=== PATIENT | female | born 1985 | race Hispanic/Latino ===

== ENCOUNTER 2021-11-06 04:57 | Emergency (ER) | payer OTHER ==
[~2021-11-06] VITALS: Ht 157.5 cm; Wt 86.2 kg
[2021-11-06] MEDS ORDERED: FLUCONAZOLE100 MG PO (05:40)
== END 2021-11-06 05:45 | disposition home or self-care (01) ==
LOC: FSED 05:40
DX: B37.9 Candidiasis, unspecified (principal); R73.03 Prediabetes; F17.210 Nicotine dependence, cigarettes, uncomplicated
CPT/HCPCS: 81003; 81025; 99282